=== PATIENT | female | born 1995 | race African-American/Black ===

== ENCOUNTER 2018-09-17 12:20 | Emergency (ER) | payer OTHER ==
[2018-09-17] MEDS: IBUPROFEN 800 MG TAB PO (13:07)
[2018-09-17] MEDS: METHOCARBAMOL 500 MG TAB PO (13:07)
== END 2018-09-17 13:57 | disposition home or self-care (01) ==
LOC: M ED 12:20
DX: S39.002A Unspecified injury of muscle, fascia and tendon of lower back, initial encounter (principal); S80.01XA Contusion of right knee, initial encounter; S80.02XA Contusion of left knee, initial encounter; V47.5XXA Car driver injured in collision with fixed or stationary object in traffic accident, initial encounter; Y92.410 Unspecified street and highway as the place of occurrence of the external cause
CPT/HCPCS: 72170